=== PATIENT | male | born 1955 | race American Indian/Alaskan Native ===

== ENCOUNTER 2018-01-12 20:24 | Emergency (ER) | payer SELFPAY ==
[2018-01-12] MEDS ORDERED: MOTRIN ONE (22:01)
[2018-01-12] MEDS ORDERED: MOTRIN PO ONE (22:09)
--- NOTE | 2018-01-12 23:05 | XRay Report ---
FINAL REPORT PROCEDURE: XR ELBOW 3+V LT TECHNIQUE: LEFT elbow radiographs, including AP, lateral, and oblique views. CPT 87501 HISTORY: Swollen and redness left elbow. COMPARISON: No prior studies are available for comparison. FINDINGS: Fracture (s) and/or Dislocation(s): None . Alignment: Normal . Joint space(s): Mild narrowing of the joint spaces. Slight spur formation off the osseous structures.. Soft tissues: Mild soft tissue swelling over the olecranon. Bone mineralization: Normal . Foreign bodies: None . IMPRESSION: No evidence of an acute fracture or dislocation. Mild arthritis. Slight soft tissue swelling over the olecranon.
--- NOTE | 2018-01-12 23:07 | XRay Report ---
FINAL REPORT PROCEDURE: XR HAND 3+V LT TECHNIQUE: LEFT hand radiographs, AP, lateral, and oblique views. CPT 75557-NO HISTORY: swollen left hand COMPARISON: No prior studies are available for comparison. FINDINGS: Fracture (s) and/or Dislocation(s): None . Alignment: Normal . Joint space(s): Normal . Soft tissues: Normal . Bone mineralization: Normal . Foreign bodies: None . IMPRESSION: Normal Examination .
--- NOTE | 2018-01-12 23:14 | Emergency Department Report ---
Upper Extremity - HPI Chief Complaint: Wound/Laceration Stated Complaint: LEFT ARM,HAND PAIN,SWELLING Time Seen by Provider: 01/12/18 22:47 Upper Extremity: Left Elbow, Left Forearm Occurred When: 3 Days Mechanism: Unsure Severity: severe Symptoms: Yes Pain with Movement, Yes Swelling, No Deformity, No Limited Range of Movement, No Numbness, No Weakness, No Bruising/Ecchymosis, No Laceration or Abrasion Other History: 62-year-old -[place] male presents to the emergency room reporting that he had injured his left hand 3 days ago while hand on his dog. Today he comes in with swelling and painful left hand and left elbow. Patient denies any fever or chills. Patient denies any fall. Patient reports he was taken Aleve and Advil last dose this morning but has not helped with the pain. Patient also reports that he wrapped his arm with chief felt had helped. But now pain and swelling has returned. Patient has no past medical history currently takes no medications on a daily basis and has no known drug allergies. ED Review of Systems ROS: Stated complaint: LEFT ARM,HAND PAIN,SWELLING Other details as noted in HPI Comment: All other systems reviewed and negative Musculoskeletal: joint swelling (left elbow), arthralgia (left hand and forearm) ED Past Medical Hx - Past Medical History Previous Medical History?: No - Surgical History Past Surgical History?: No - Social History Smoking Status: Never Smoker Substance Use Type: None - Medications Home Medications: Home Medications Medication Instructions Recorded Confirmed Last Taken Type Ibuprofen [Motrin 800 MG tab] 800 mg PO Q8HR PRN #30 tablet 01/13/18 Unknown Rx Upper Extremity Exam - Exam General: Vital signs noted. No distress. Alert and acting appropriately. Shoulder Exam: Yes Clavicle Tenderness, Yes Normal Range of Motion in Shoulder, No Shoulder Tenderness, No Shoulder Deformity, No AC Joint Tenderness Elbow: Yes Elbow Tenderness, Yes Normal Range of Motion in Elbow, No Elbow Deformity Forearm: Yes Forearm Tenderness, No Forearm Deformity, No Pain with Pronation, No Pain with Supination Wrist: Yes Wrist Tenderness CMS Exam: No Broken Skin ED Course Vital Signs 01/12/18 01/12/18 20:30 22:00 Temperature 99.8 F H 99.8 F H Pulse Rate 84 84 Respiratory 16 18 Rate Blood Pressure 167/103 167/103 O2 Sat by Pulse 96 98 Oximetry - Reevaluation(s) Reevaluation #1: 01/13/18 00:59 Capillary refills is 2 seconds post OCL ED Medical Decision Making - Lab Data Result diagrams: 01/12/18 23:05 - Radiology Data Radiology results: report reviewed FINDINGS: Fracture (s) and/or Dislocation(s): None . Alignment: Normal . Joint space(s): Normal . Soft tissues: Normal . Bone mineralization: Normal . Foreign bodies: None . IMPRESSION: Normal Examination . Transcribed By: [facility] Dictated By: BEREKET GLEZ MD Electronically Authenticated By: BEREKET GLEZ MD Signed Date/Time: 01/12/182304 DD/ 04 TD/TT: 01/12/182304 FINDINGS: Fracture (s) and/or Dislocation(s): None . Alignment: Normal . Joint space(s): Mild narrowing of the joint spaces. Slight spur formation off the osseous structures.. Soft tissues: Mild soft tissue swelling over the olecranon. Bone mineralization: Normal . Foreign bodies: None . IMPRESSION: No evidence of an acute fracture or dislocation. Mild arthritis. Slight soft tissue swelling over the olecranon. Transcribed By: [facility] Dictated By: BEREKET GLEZ MD Electronically Authenticated By: BEREKET GLEZ MD Signed Date/Time: 01/12/182303 DD/ 03 TD/TT: 01/12/182303 cc: GHASSAN DELGADILLO Fluoro Time In Minutes: FINAL REPORT PROCEDURE: XR WRIST 3+V LT TECHNIQUE: LEFT wrist radiographs, including AP, lateral, and oblique views. CPT 72011 HISTORY: swelling and pain COMPARISON: No prior studies are available for comparison. FINDINGS: Fracture (s) and/or Dislocation(s): None . Alignment: Normal . Joint space(s): Normal . Soft tissues: Normal . Bone mineralization: Normal . Foreign bodies: None . IMPRESSION: Normal Examination. Transcribed By: [facility] Dictated By: BEREKET GLEZ MD Electronically Authenticated By: BEREKET GLEZ MD Signed Date/Time: 01/12/182350 DD/ 50 TD/TT: 01/12/182350 FINAL REPORT PROCEDURE: XR FOREARM 1V LT TECHNIQUE: LEFT forearm radiographs, AP view. CPT 45339 HISTORY: swelling and pain COMPARISON: No prior studies are available for comparison. FINDINGS: Fracture (s) and/or Dislocation(s): None . Joint space(s): Normal . Soft tissues: Normal . Bone mineralization: Normal . Foreign bodies: None . IMPRESSION: Normal Examination Transcribed By: [facility] Dictated By: BEREKET GLEZ MD Electronically Authenticated By: BEREKET GLEZ MD Signed Date/Time: 01/12/182350 DD/ 50 TD/TT: 01/12/182350 - Medical Decision Making Patient has been evaluated by this provider and faster. Ibuprofen given for pain management. X-ray of left hand left wrist left forearm and left elbow ordered which are shows normal examination. We will place patient in a sugar tong splint and have him follow-up with orthopedics in the next 24-48 hours. - Differential Diagnosis sprain, occult fracture, cellulitis Critical care attestation.: If time is entered above; I have spent that time in minutes in the direct care of this critically ill patient, excluding procedure time. ED Disposition Clinical Impression: Localized swelling on left hand Left wrist sprain Qualifiers: Encounter type: initial encounter Qualified Code(s): S63.502A - Unspecified sprain of left wrist, initial encounter Disposition: - TO HOME OR SELFCARE Is pt being admited?: No Does the pt Need Aspirin: No Condition: Stable Instructions: Wrist Injury (ED), Wrist Sprain (ED) Additional Instructions: Please take pain medication as prescribed. Please eat prior to taking pain medication. Please wear splint elevate wrist ice 20 minutes on. Follow-up with orthopedist I have listed several below for your convenience. If her symptoms worsen such as increased swelling and increased pain to return back to the emergency room immediately. Prescriptions: Ibuprofen [Motrin 800 MG tab] 800 mg PO Q8HR PRN #30 tablet PRN Reason: Pain , Severe (7-10) Referrals: PRIMARY CARE, [Primary Care Provider] - 3-5 Days CIRA AMBROSE MD [Staff Physician] - 3-5 Days LUTHER MONAE MD [Staff Physician] - 3-5 Days Forms: Work/School Release Form(ED)
[2018-01-12 23:18] LABS: Basophils # (Auto) 0.1 K/mm3 (0.0-0.1); Basophils % (Auto) 0.9 % (0.0-1.8); Eosinophils # (Auto) 0.1 K/mm3 (0.0-0.4); Eosinophils % (Auto) 1.1 % (0.0-4.3); Hematocrit 44.4 % (35.5-45.6); Lymphocytes # (Auto) 2.9 K/mm3 (1.2-5.4); Lymphocytes % (Auto) 32.4 % (13.4-35.0); Mean Corpuscular HGB Conc 34 % (32-34); Mean Corpuscular Hemoglobin 32 pg (28-32); Mean Corpuscular Volume 93 fl (84-94); Monocytes # (Auto) 0.9 K/mm3 (0.0-0.8); Monocytes % (Auto) 9.6 % (0.0-7.3); Platelet Count 283 K/mm3 (140-440); Red Blood Count 4.76 M/mm3 (3.65-5.03); Red Cell Distribution Width 13.4 % (13.2-15.2)
--- NOTE | 2018-01-12 23:53 | XRay Report ---
FINAL REPORT PROCEDURE: XR WRIST 3+V LT TECHNIQUE: LEFT wrist radiographs, including AP, lateral, and oblique views. CPT 94017 HISTORY: swelling and pain COMPARISON: No prior studies are available for comparison. FINDINGS: Fracture (s) and/or Dislocation(s): None . Alignment: Normal . Joint space(s): Normal . Soft tissues: Normal . Bone mineralization: Normal . Foreign bodies: None . IMPRESSION: Normal Examination.
--- NOTE | 2018-01-12 23:53 | XRay Report ---
FINAL REPORT PROCEDURE: XR FOREARM 1V LT TECHNIQUE: LEFT forearm radiographs, AP view. CPT 01227 HISTORY: swelling and pain COMPARISON: No prior studies are available for comparison. FINDINGS: Fracture (s) and/or Dislocation(s): None . Joint space(s): Normal . Soft tissues: Normal . Bone mineralization: Normal . Foreign bodies: None . IMPRESSION: Normal Examination
[2018-01-13 00:22] VITALS: BP 160/94
== END 2018-01-13 01:02 | disposition home or self-care (01) ==
LOC: ED 20:24
DX: S63.502A Unspecified sprain of left wrist, initial encounter (principal); X58.XXXA Exposure to other specified factors, initial encounter; Y93.89 Activity, other specified; Y99.8 Other external cause status; Y92.89 Other specified places as the place of occurrence of the external cause
CPT/HCPCS: 36415; 85025